=== PATIENT | female | born 1975 | race Caucasian/White ===

== ENCOUNTER 2017-10-08 07:04 | Day surgery (SDC) | payer BC ==
[2017-10-07 16:30] LABS: BASOPHILS % (AUTO) 0.5 % (0-1); EOSINOPHILS # (AUTO) 0.2 X10'3 (0-0.9); EOSINOPHILS % (AUTO) 1.7 % (0-6); LYMPHOCYTES # (AUTO) 2.7 X10'3 (1.1-4.8); LYMPHOCYTES % (AUTO) 28.3 % (21-51); MEAN CORPUSCULAR HEMOGLOBIN 32.4 PG (27.0-31.0); MEAN CORPUSCULAR HGB CONC 35.5 % (33.0-36.5); MEAN CORPUSCULAR VOLUME 91.4 FL (78-98); MEAN PLATELET VOLUME 9.6 FL (7.4-10.4); MONOCYTES # (AUTO) 0.4 X10'3 (0-0.9); MONOCYTES % (AUTO) 4.3 % (2-12); NEUTROPHILS # (AUTO) 6.1 X10'3 (1.8-7.7); NEUTROPHILS % (AUTO) 65.2 % (42-75); PRE OP HEMATOCRIT 38.8 % (35.0-45.0); PRE OP HEMOGLOBIN 13.8 g/dL (12.0-16.0); PRE OP PLATELET COUNT 232 X10'3 (140-440); RED BLOOD COUNT 4.24 X10'6 (4.20-5.60); RED CELL DISTRIBUTION WIDTH 13.1 % (11.5-14.5)
[2017-10-07 16:44] LABS: HCG SERUM QL NEGATIVE
[2017-10-08] VITALS (9 sets, daily range): BP systolic 97–110; BP diastolic 54–68
[~2017-10-08] VITALS: Ht 167.6 cm; Wt 84.2 kg
[~2017-10-08 07:04] MED LIST: PROG100C6 PO; famotidine 20mg tablet PO ONE; ringers solution, lacted 1,000 ML IV SCH
[2017-10-08] MEDS ORDERED: ringers solution, lacted 1,000 ML IV SCH (08:47)
[2017-10-08] MEDS ORDERED: meperidine/PF 25mg/ml syringe IV PRN ×3 (08:50)
[2017-10-08] MEDS ORDERED: ondansetron/PF 4mg/2ml inj IV PRN (08:50)
[2017-10-08] MEDS ORDERED: proCHLORperazine 10 MG/2 ml inj IV PRN (08:50)
[2017-10-08] MEDS ORDERED: epiNEPHrine 1 mg/ml inj ONE (09:23)
[2017-10-08] MEDS ORDERED: LIDOcaine 1% 30ml vial 30 ML ONE (09:23)
[2017-10-08] MEDS ORDERED: BUPIVAcaine 0.5% inj/PF 30 ML ONE (09:23)
[2017-10-08] MEDS ORDERED: glycopyrrolate 0.2mg/ml inj ONE (09:40)
[2017-10-08] MEDS ORDERED: sevoflurane 250ml liquid IH ONE (09:40)
[2017-10-08] MEDS ORDERED: ondansetron/PF 4mg/2ml inj ONE (09:40)
[2017-10-08] MEDS ORDERED: dexamethasone sod phosphate 4mg/ml inj. ONE (09:40)
[2017-10-08] MEDS ORDERED: midazolam 2 mg/2 ml injection ONE (09:48)
[2017-10-08] MEDS ORDERED: fentaNYL/PF 50MCG/1 ML 2ML syringe ONE (09:48)
[2017-10-08] MEDS ORDERED: propofol inj 20 ML IV ONE (09:49)
[2017-10-08] MEDS ORDERED: LIDOcaine 2% (20mg/ml) 5ml vial ONE (09:49)
[2017-10-08] MEDS ORDERED: ketorolac trometh. 30mg/ml inj. ONE (09:59)
[2017-10-08] MEDS ORDERED: neostigmine methylsulfate 1 MG/ML 10ml vial ONE (10:42)
[2017-10-08] MEDS ORDERED: oxyCODONE/APAP 5-325mg tablet PO PRN ×2 (11:00)
== END 2017-10-08 12:10 | disposition home or self-care (01) ==
LOC: PAS 07:04
PROVIDERS: ATTEND Obstetrics & Gynecology
DX: Z30.2 Encounter for sterilization (principal); N92.0 Excessive and frequent menstruation with regular cycle; N85.8 Other specified noninflammatory disorders of uterus; Z88.6 Allergy status to analgesic agent; E66.9 Obesity, unspecified; Z98.890 Other specified postprocedural states; Z72.89 Other problems related to lifestyle; Z68.30 Body mass index [BMI] 30.0-30.9, adult
CPT/HCPCS: 36415; 58563; 58661; 84703; 85025; 86885; 86900; 86901; A4355; A6255; J0171; J1885; J2001; J2175; J2250; J2405; J2704; J2710; J3010; J3490; J7030; J7120; A6250; J1100

== ENCOUNTER 2020-08-29 13:52 | Emergency (ER) | payer BC ==
[~2020-08-29] VITALS: Ht 167.6 cm; Wt 97.7 kg
[~2020-08-29 13:52] MED LIST changes: +PROG100C11 PO; -PROG100C6 PO; -famotidine 20mg tablet PO ONE; -ringers solution, lacted 1,000 ML IV SCH
[2020-08-29 15:45] LABS: BASOPHILS % (AUTO) 0.6 % (0-1); EOSINOPHILS # (AUTO) 0.1 X10'3 (0-0.9); EOSINOPHILS % (AUTO) 1.4 % (0-6); HEMATOCRIT 41.5 % (35.0-45.0); HEMOGLOBIN 13.9 g/dl (12.0-16.0); LYMPHOCYTES # (AUTO) 2.2 X10'3 (1.1-4.8); LYMPHOCYTES % (AUTO) 27.6 % (21-51); MEAN CORPUSCULAR HEMOGLOBIN 30.8 PG (27.0-31.0); MEAN CORPUSCULAR HGB CONC 33.4 g/dL (33.0-36.5); MEAN CORPUSCULAR VOLUME 92.3 FL (78-98); MEAN PLATELET VOLUME 10.2 FL (7.4-10.4); MONOCYTES # (AUTO) 0.5 X10'3 (0-0.9); MONOCYTES % (AUTO) 6.1 % (2-12); NEUTROPHILS # (AUTO) 5.1 X10'3 (1.8-7.7); NEUTROPHILS % (AUTO) 64.3 % (42-75); PLATELET COUNT 258 X10'3 (140-440); RED CELL DISTRIBUTION WIDTH 13.9 % (11.5-14.5)
[2020-08-29 15:49] LABS: D-DIMER 0.69 MG/L FEU (0-0.50)
[2020-08-29 15:56] LABS: ALANINE AMINOTRANSFERASE 59 U/L (12-78); ALBUMIN 3.7 G/DL (3.4-5.0); ALBUMIN/GLOBULIN RATIO 0.9 (1.1-1.5); ALKALINE PHOSPHATASE 93 IU/L (46-116); ANION GAP 8 (8-16); ASPARTATE AMINO TRANSFERASE 25 U/L (10-37); BILIRUBIN,TOTAL 0.7 MG/DL (0.1-1.0); BLOOD UREA NITROGEN 9 MG/DL (7-18); CALCIUM 8.9 MG/DL (8.5-10.1); CHLORIDE 105 MMOL/L (99-107); GLUCOSE 94 MG/DL (70-104); POTASSIUM 4.2 MMOL/L (3.5-5.1); SODIUM 142 MMOL/L (135-145); TOTAL CARBON DIOXIDE 29.3 MMOL/L (24-32); eGFR > 90 ML/MIN
[2020-08-29] MEDS ORDERED: iohexol 350MG/ML 100ml bottle IV ONE (16:08)
[2020-08-29 16:22] LABS: LIPASE 128 U/L (73-393)
--- NOTE | 2020-08-29 17:10 | NUR ---
Attempted IV access without Success. Will ask another RN to attempt IV for CTA of the chest.
--- NOTE | 2020-08-29 18:50 | NUR ---
Return from CT scan after CTA of the chest.
[2020-08-29] MEDS ORDERED: mag hydrox/Alum hydrox/simeth 30ml oral suspension PO ONE (19:10)
[2020-08-29] MEDS ORDERED: LIDOcaine Viscous 15ml cup MM ONE (19:10)
[2020-08-29] MEDS ORDERED: pantoprazole 40 MG vial IV ONE (19:50)
[2020-08-29] MEDS ORDERED: famotidine/PF 10 mg/ml inj IV ONE (19:50)
[2020-08-29] MEDS ORDERED: OMEP40CA13 PO (19:53)
[2020-08-29 20:27] VITALS: BP 107/64
== END 2020-08-29 20:31 | disposition home or self-care (01) ==
LOC: ER 13:52
DX: R07.89 Other chest pain (principal); R10.13 Epigastric pain; Z88.5 Allergy status to narcotic agent; Z79.899 Other long term (current) drug therapy
CPT/HCPCS: 36415; 71045; 71275; 74176; 80053; 83690; 83880; 84484; 85025; 85379; 93005; 96374; 96375; 99285; C9113; J3490; Q9967